=== PATIENT | male | born 1940 | race Caucasian/White ===

== ENCOUNTER 2017-08-22 07:55 | Observation (INO) ==
[2017-08-22] MEDS ORDERED: Nitroglycerin 0.4 MG TAB.SUBL SL PRN (08:15)
--- NOTE | 2017-08-22 08:20 | Emergency Department Note ---
Disposition Clinical Impression: NSTEMI (non-ST elevated myocardial infarction) Disposition: Admitted As Inpatient Condition: Good Referrals: Nicolás Suero MD [Primary Care Provider] - Forms: ED Satisfaction Letter Time of Disposition: 09:33 Chest Pain HPI - General Chief Complaint: ED Chest Pain Stated Complaint: CP Time Seen by Provider: 08/22/17 08:01 Source: patient Limitations: no limitations Vital Signs Reviewed: Yes Nursing Notes Reviewed: Yes - History of Present Illness HPI Narrative: 76 year old male presents to the eD with complaints of chest pressure that started yesterday evening and has been intermittement oer the past 12 hours. He has a history of CABG and 4 stents from previous ACS/STEMIs. PAtient states that this is simliar in [facility] and follows with Dr. Soler and has an appointment on September 01 with him. 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 He also has a suprapubic catheter secondary to his prostate cancer. PAtnet states that he is at baseline for his exertional dyspnea and denies diaphoresis, although eh was fairely nausated yesterday. No fevers, cough , cold, congestion, or hemoptyosis. Severity scale (1-10): 4 - Related Data Home Medications Medication Instructions Recorded Confirmed Clopidogrel [Plavix] 75 mg PO DAILY 07/22/15 08/22/17 Levothyroxine [Synthroid] 112 mcg PO DAILY 07/22/15 08/22/17 Rosuvastatin Calcium [Crestor] 1 tab PO DAILY 07/22/15 08/22/17 hydroCHLOROthiazide 12.5 mg PO DAILY 07/22/15 08/22/17 [Hydrochlorothiazide] Carvedilol [Coreg] 6.25 mg PO BID 08/22/17 08/22/17 Cranberry Fruit Extract [Cranberry] 500 mg PO DAILY 08/22/17 08/22/17 Lisinopril [Zestril] 40 mg PO BID 08/22/17 08/22/17 hydroCHLOROthiazide 50 mg PO DAILY 08/22/17 08/22/17 [Hydrochlorothiazide] Allergies Allergy/AdvReac Type Severity Reaction Status Date / Time aspirin Allergy Anaphylaxis Verified 08/22/17 07:59 Constitutional: Denies: fever, chills, weakness, weight change Eyes: Denies: eye pain, eye discharge, vision change ENT ED: Denies: ear pain, throat pain, dental pain, hearing loss, epistaxis, congestion, dysphagia Cardiovascular: Reports: chest pain. Denies: palpitations, dyspnea on exertion , edema, syncope Respiratory: Denies: cough, dyspnea, wheezes, hemoptysis, stridor Gastrointestinal: Denies: abdominal pain, nausea, vomiting, diarrhea, constipation, hematemesis, melena, hematochezia Genitourinary: Denies: urgency, dysuria, frequency, hematuria Musculoskeletal: Denies: back pain, neck pain, arthralgia, myalgia Integumentary: Denies: rash, abrasion, lesions Neurological: Denies: headache, weakness, numbness, paresthesias, confusion, abnormal gait, vertigo Psychiatric: Denies: anxiety, depression, suicidal thoughts, homicidal thoughts , auditory hallucinations, visual hallucinations Endocrine: Denies: fatigue Hematological/Lymphatic: Denies: easy bleeding, easy bruising Allergic/Immunologic: Denies: facial swelling, urticaria Chest Pain PMH - Past Medical History Medical history: Reports: cancer, coronary artery disease, hyperlipidemia, hypertension, myocardial infarction Psychiatric history: Reports: no psych history - Social History Smoking Status: Former smoker Alcohol use: Reports: none Drug use: Reports: none Physical Exam - General Limitations: no limitations General appearance: alert, in no apparent distress - Head Head exam: atraumatic, normocephalic, normal inspection - Eye Eye exam: Present: normal appearance, PERRL, EOMI - Expanded Eye Exam Pupils: Bilateral: reactive - ENT ENT exam: normal exam, normal oropharynx, mucous membranes moist - Expanded ENT Exam External ear exam: Present: normal external inspection Mouth exam: Present: normal external inspection Teeth exam: Present: normal inspection Throat exam: Present: normal inspection - Neck Neck exam: Present: normal inspection, full ROM, trachea midline - Chest Chest inspection: Present: normal inspection, symmetric chest wall rise - Respiratory Respiratory exam: Present: normal lung sounds bilaterally - Cardiovascular Cardiovascular exam: Present: regular rate, normal rhythm, normal heart sounds - Abdominal Exam Abdominal exam: Present: soft, Non-Tender. Absent: tenderness, distention, guarding, rebound, rigidity - Extremities Exam Extremities exam: Present: normal inspection, full ROM. Absent: tenderness, pedal edema - Expanded Upper Extremity Exam Shoulder exam: Present: normal inspection, full ROM Arm exam: Present: normal inspection, full ROM Elbow exam: Present: normal inspection, full ROM Forearm/Wrist exam: Present: normal inspection, full ROM Hand exam: Present: normal inspection, full ROM Vascular exam: Normal: capillary refill, radial pulse - Expanded Lower Extremity Exam Hip/Pelvis exam: Present: normal inspection, full ROM Upper leg exam: Present: normal inspection, full ROM Knee exam: Present: normal inspection, full ROM Lower leg exam: Present: normal inspection, full ROM Ankle exam: Present: normal inspection, full ROM Foot/toe exam: Present: normal inspection, full ROM Neurovascular/Tendon exam: Absent: motor deficit, sensory deficit, tendon deficit - Back Exam Back exam: Present: normal inspection, full ROM. Absent: tenderness - Neurological Exam Neurological exam: Present: alert, oriented X3 - Expanded Neurological Exam Patient oriented to: Present: person, place, time Coma Scale Eye Opening: Spontaneous Coma Scale Motor Response: Obeys Commands Coma Scale Verbal Response: Oriented Coma Scale Total: 15 - Psychiatric Psychiatric exam: Present: normal affect, normal mood - Skin Skin exam: Present: warm, dry, intact, normal color Course Course Narrative: we will do a cardiopulmonary workup and rule out PE but likely amanda for CP r/oa ACS. nitro shonna be given. He is allergic to ASA so we will treat him with clopigreal instead. - Reevaluation(s) Reevaluation #1: updated patine bibiana he is agreeble to admission Time: 09:16 - Consultations Consultation #1: discussed case with Dr. Becerra and he accepts ptinet for admission and would like cardiology consulted as well. Heparin drip started, nitro drip ordered but on hold due to chest pain level of 1. cards paged. Time: 09:16 Vital Signs Temperature 97.5 F L 08/22/17 07:56 Pulse Rate 62 08/22/17 07:56 Respiratory Rate 18 08/22/17 07:56 Blood Pressure 165/102 08/22/17 07:56 O2 Sat by Pulse Oximetry 97 08/22/17 07:56 Temperature 97.5 F L 08/22/17 07:56 Pulse Rate 62 08/22/17 07:56 Respiratory Rate 18 08/22/17 07:56 Blood Pressure 165/102 08/22/17 07:56 O2 Sat by Pulse Oximetry 97 08/22/17 07:56 Oxygen Delivery Oxygen Delivery Room Air Chest Pain - Medical Records Medical records reviewed: Yes I reviewed the patient's medical records. - Lab Data Lab results reviewed: Yes I reviewed the patient's lab results. Result diagrams: 08/22/17 08:19 08/22/17 08:19 Lab Results 08/22/17 08/22/17 08/22/17 Range/Units 08:19 08:19 08:19 WBC 6.7 (4.3-11.1) K/mcL RBC 5.22 (4.19-5.50) M/mcL Hgb 16.3 (12.9-16.9) g/dL Hct 47.4 (37.5-50.1) % MCV 90.8 (83.0-100.0) fL MCH 31.2 (28.0-33.3) pg MCHC 34.4 (31.6-35.5) g/dL RDW 12.7 (11.5-14.5) % Plt Count 233 (140-400) K/mcL MPV 9.0 L (9.4-12.4) fL Immature Gran % 0.6 (0-4) % Seg Neutrophils % 62.1 % Lymphocytes % 23.0 % Monocytes % 10.7 % Eosinophils % 3.0 % Basophils % 0.6 % Neutrophils # 4.2 (1.6-8.9) K/mcL Lymphocytes # 1.6 (0.6-4.6) K/mcL Monocytes # 0.7 (0.0-1.3) K/mcL Eosinophils # 0.2 (0.0-0.6) K/mcL Basophils # 0.0 (0.0-0.2) K/mcL PT 10.6 (9.4-12.1) Seconds INR 1.0 APTT 28.6 (26.0-36.0) Seconds D-Dimer (0-500) ng/mLFEU Sodium 139 (136-145) mEq/L Potassium 3.6 (3.5-5.1) mEq/L Chloride 101 (98-107) mEq/L Carbon Dioxide 31 H (23-29) mEq/L BUN 12 (8-23) mg/dL Creatinine 0.84 (0.70-1.30) mg/dL Est GFR ( Amer) > 60 (> 60) Est GFR (Non-Af Amer) > 60 (> 60) BUN/Creatinine Ratio 14 (6-26) Glucose 133 H (70-105) mg/dL Calculated Osmolality 290 (280-300) Lactic Acid (0.5-2.2) mmol/L Calcium 9.6 (8.6-10.3) mg/dL Total Bilirubin (0.3-1.0) mg/dL Direct Bilirubin (0.0-0.2) mg/dL Indirect Bilirubin (0.0-1.2) mg/dL AST (13-39) Units/L ALT (7-52) Units/L Alkaline Phosphatase (34-104) Units/L Troponin I 0.69 H* (< 0.04) ng/mL Serum Total Protein (6.4-8.9) g/dL Albumin (3.5-5.7) g/dL Globulin (2.4-3.5) g/dL Albumin/Globulin Ratio (1.1-2.2) Lipase (11-82) Units/L 08/22/17 08/22/17 08/22/17 Range/Units 08:19 08:19 08:19 WBC (4.3-11.1) K/mcL RBC (4.19-5.50) M/mcL Hgb (12.9-16.9) g/dL Hct (37.5-50.1) % MCV (83.0-100.0) fL MCH (28.0-33.3) pg MCHC (31.6-35.5) g/dL RDW (11.5-14.5) % Plt Count (140-400) K/mcL MPV (9.4-12.4) fL Immature Gran % (0-4) % Seg Neutrophils % % Lymphocytes % % Monocytes % % Eosinophils % % Basophils % % Neutrophils # (1.6-8.9) K/mcL Lymphocytes # (0.6-4.6) K/mcL Monocytes # (0.0-1.3) K/mcL Eosinophils # (0.0-0.6) K/mcL Basophils # (0.0-0.2) K/mcL PT (9.4-12.1) Seconds INR APTT (26.0-36.0) Seconds D-Dimer 242 (0-500) ng/mLFEU Sodium (136-145) mEq/L Potassium (3.5-5.1) mEq/L Chloride (98-107) mEq/L Carbon Dioxide (23-29) mEq/L BUN (8-23) mg/dL Creatinine (0.70-1.30) mg/dL Est GFR ( Amer) (> 60) Est GFR (Non-Af Amer) (> 60) BUN/Creatinine Ratio (6-26) Glucose (70-105) mg/dL Calculated Osmolality (280-300) Lactic Acid 1.9 (0.5-2.2) mmol/L Calcium (8.6-10.3) mg/dL Total Bilirubin 0.9 (0.3-1.0) mg/dL Direct Bilirubin 0.2 (0.0-0.2) mg/dL Indirect Bilirubin 0.7 (0.0-1.2) mg/dL AST 16 (13-39) Units/L ALT 23 (7-52) Units/L Alkaline Phosphatase 48 (34-104) Units/L Troponin I (< 0.04) ng/mL Serum Total Protein 7.5 (6.4-8.9) g/dL Albumin 4.2 (3.5-5.7) g/dL Globulin 3.3 (2.4-3.5) g/dL Albumin/Globulin Ratio 1.3 (1.1-2.2) Lipase 29 (11-82) Units/L - Radiology Data Radiology results reviewed: Yes I reviewed the patient's radiology results. - EKG Data EKG attestation: Yes I reviewed and interpreted this EKG. EKG results narrative: NSR with rate of 68. NO STEMI. RBBB. nrmal intervals. no old ekg. 0828 Heart Score - Score History: Moderately Suspicious EKG: Non Specific repolarisation Disturbance Age: Greater than 65 Risk Factors: Equal/Greater than 3 risk factor or history of atherosclerotic disease Troponin: Greater than 3x normal limit HEART Score Total: 8
[2017-08-22 08:28] LABS: Basophils % 0.6 %; Eosinophils # 0.2 K/mcL (0.0-0.6); Hematocrit 47.4 % (37.5-50.1); Hemoglobin 16.3 g/dL (12.9-16.9); Immature Granulocytes % 0.6 % (0-4); Lymphocytes # 1.6 K/mcL (0.6-4.6); Mean Corpuscular HGB Conc 34.4 g/dL (31.6-35.5); Mean Corpuscular Hemoglobin 31.2 pg (28.0-33.3); Mean Corpuscular Volume 90.8 fL (83.0-100.0); Monocytes # 0.7 K/mcL (0.0-1.3); Monocytes % 10.7 %; Neutrophils # 4.2 K/mcL (1.6-8.9); Platelet Count 233 K/mcL (140-400); Red Blood Count 5.22 M/mcL (4.19-5.50); Red Cell Distribution Width 12.7 % (11.5-14.5); Segmented Neutrophils % 62.1 %
[2017-08-22 08:39] LABS: Prothrombin Time 10.6 Seconds (9.4-12.1)
[2017-08-22 08:42] LABS: Activated Partial Thrombo Time 28.6 Seconds (26.0-36.0)
[2017-08-22 08:50] LABS: Albumin 4.2 g/dL (3.5-5.7); Albumin/Globulin Ratio 1.3 (1.1-2.2); Bilirubin,Direct 0.2 mg/dL (0.0-0.2); Bilirubin,Indirect 0.7 mg/dL (0.0-1.2); Bilirubin,Total 0.9 mg/dL (0.3-1.0); Globulin 3.3 g/dL (2.4-3.5); Total Protein 7.5 g/dL (6.4-8.9)
[2017-08-22 08:51] LABS: BUN/Creatinine Ratio 14 (6-26); Blood Urea Nitrogen 12 mg/dL (8-23); Calcium 9.6 mg/dL (8.6-10.3); Carbon Dioxide 31 mEq/L (23-29); Chloride 101 mEq/L (98-107); Glucose 133 mg/dL (70-105); Osmolality,Calculated 290 (280-300); Potassium 3.6 mEq/L (3.5-5.1); Sodium 139 mEq/L (136-145); eGFR For African Americans > 60 (> 60); eGFR For Non-African Americans > 60 (> 60)
[2017-08-22] MEDS ORDERED: *HR* Heparin 5,000 UNIT/ML VIAL IVP ONE (08:58)
[2017-08-22] MEDS ORDERED: *HR* Heparin 5,000 UNIT/ML VIAL IVP PRN ×2 (08:58)
[2017-08-22 08:59] LABS: Troponin I 0.69 ng/mL (< 0.04)
[2017-08-22] MEDS ORDERED: Nitroglycerin 25 MG/250 ML INFUS..BTL IVC SCH (09:00)
[2017-08-22] MEDS ORDERED: Heparin 25,000 UNIT/500 ML D5W 25,000 UNIT/500 ML BAG IVC SCH (09:00)
--- NOTE | 2017-08-22 10:16 | Internal Med History&Physical ---
Date of Encounter: 08/22/17 Time of Encounter: 09:30 Assessment and Plan (1) NSTEMI (non-ST elevated myocardial infarction) Current visit: Yes Status: Acute Patient presenting with chest pain and troponin elevation up to 0.69. Given his prior history of coronary artery disease, CABG, most likely non-ST elevation CT. Continue IV heparin. IV nitroglycerin to control chest pain. Consult cardiology for further recommendations. Patient will most likely need left heart catheterization. High risk for complications. Monitor with telemetry. Check lipid profile. (2) Essential hypertension Current visit: Yes Status: Chronic Blood pressure was elevated on initial arrival here. Since then it has improved. We will continue to monitor blood pressure. Continue home medications. (3) Coronary artery disease Current visit: Yes Status: Acute Status post-PCI and stents and CABG. Continue Plavix, carvedilol, lisinopril and Crestor. Qualifiers: Coronary Disease-Associated Artery/Lesion type: [place] artery [place] vs. transplanted heart: [place] heart Associated angina: with unstable angina Qualified Code(s): I25.110 - Atherosclerotic heart disease of [place] coronary artery with unstable angina pectoris (4) Hypothyroidism Current visit: Yes Status: Chronic Continue levothyroxine. Qualifiers: Hypothyroidism type: other Qualified Code(s): E03.8 - Other specified hypothyroidism (5) DVT prophylaxis Current visit: Yes Status: Acute On IV heparin Internal Medicine - H&P: HPI Chief complaint: Chest pain Admitted From: Emergency Dept Plans for Post Hospital Care: Home History of present illness: Mr. Lacy is a 76 year old male patient with history of coronary artery disease status post PCI and coronary intervention and coronary artery bypass grafting presented to the ER with complaints of chest pain that began last night. He describes it as left-sided chest tightness. He did have some nitroglycerin at home but he did not take it was not very intense and was nonradiating. He continued to have the pain overnight so he came to the ER. In the ER, he has been placed on nitro drip and his chest pain seems to have eased up. He denies any shortness of breath at this time. No pedal edema. No fever or chills. No cough. He had CABG done one year back. Patient is currently on Plavix. His other medical problems include rectal cancer, hypertension, hypothyroidism, DVTs with IVC filter in place. Past Med Surg Social Fam HX - Past Medical History Attestation: Yes The following information was validated with the patient. Source: patient Medical history: cancer, coronary artery disease, hyperlipidemia, hypertension, myocardial infarction Psychiatric history: no psych history - Social History Smoking Status: Former smoker Alcohol use: none Drug use: none Internal Medicine - H&P: Meds Clopidogrel [Plavix] 75 mg PO DAILY 07/22/15 [History] Levothyroxine [Synthroid] 112 mcg PO DAILY 07/22/15 [History] Rosuvastatin Calcium [Crestor] 1 tab PO DAILY 07/22/15 [History] hydroCHLOROthiazide [Hydrochlorothiazide] 12.5 mg PO DAILY 07/22/15 [History] Carvedilol [Coreg] 6.25 mg PO BID 08/22/17 [History] Cranberry Fruit Extract [Cranberry] 500 mg PO DAILY 08/22/17 [History] Lisinopril [Zestril] 40 mg PO BID 08/22/17 [History] hydroCHLOROthiazide [Hydrochlorothiazide] 50 mg PO DAILY 08/22/17 [History] 3 Allergy/AdvReac Type Severity Reaction Status Date / Time aspirin Allergy Anaphylaxis Verified 08/22/17 07:59 All Systems PM: A 10-system review of systems was performed and is negative for pertinent findings except as documented above in the HPI. - Constitutional Constitutional: no chills, no fever(s), no night sweats - EENT Eyes: no change in vision, no discharge, no pain, no photophobia Ears: no ear discharge, no ear pain, no tinnitus Nose, mouth and throat: no dysphagia, no nasal discharge, no neck pain, no sore throat - Cardiovascular Cardiovascular ROS IM: chest pain, no diaphoresis, no dyspnea, no lightheadedness, no palpitations, no syncope - Respiratory Respiratory: no cough, no dyspnea, no wheezing, no excessive phlegm production - Gastrointestinal Gastrointestinal: no abdominal pain, no diarrhea, no hematemesis, no hematochezia, no melena, no nausea, no vomiting - Musculoskeletal Musculoskeletal ROS IM: no numbness, no tingling - Integumentary Integumentary IM: no rash, no unusual bruising - Neurological Neurological ROS: no confusion, no convulsions, no focal weakness, no numbness, no tingling, no tremor(s) - Hematologic/Lymphatic Hematologic/Lymphatic: no easy bruising - Constitutional Vitals: Temp Pulse Resp BP Pulse Ox 97.5 F L 59 18 120/79 98 08/22/17 07:56 08/22/17 09:26 08/22/17 09:26 08/22/17 09:26 08/22/17 09:26 General appearance: Present: cooperative, mild distress, A&O X 3, answers questions appropriately - Respiratory Respiratory exam: Present: CTAB. Absent: accessory muscle use, rales, rhonchi, wheezes - Cardiovascular Cardiovascular exam: Present: RRR, +S1, +S2. Absent: diastolic murmur, gallop, rubs, systolic murmur - GI/Abdominal GI/Abdominal exam: Present: normal bowel sounds, soft, no peritoneal signs. Absent: distended, tenderness - Extremities Exam Extremities exam: Present: warm, radial pulses palpable and symmetrical. Absent : calf tenderness, cyanotic, pedal edema - Neurological Exam Neurological exam: Present: alert, CN II-XII intact, oriented X3, no focal deficits. Absent: facial droop, speech deficit - Skin Skin exam: Present: dry, intact Internal Med - H&P Results - Labs CBC & Chem 7: 08/22/17 08:19 08/22/17 08:19 Labs: Short CBC 08/22/17 Range/Units 08:19 WBC 6.7 (4.3-11.1) K/mcL Hgb 16.3 (12.9-16.9) g/dL Hct 47.4 (37.5-50.1) % Plt Count 233 (140-400) K/mcL Neutrophils # 4.2 (1.6-8.9) K/mcL BMP 08/22/17 08:19 Sodium 139 Potassium 3.6 Chloride 101 Carbon Dioxide 31 H BUN 12 Creatinine 0.84 Glucose 133 H Calcium 9.6 Cardiac Enzymes 08/22/17 Range/Units 08:19 Troponin I 0.69 H* (< 0.04) ng/mL Liver Function 08/22/17 Range/Units 08:19 Total Bilirubin 0.9 (0.3-1.0) mg/dL Direct Bilirubin 0.2 (0.0-0.2) mg/dL AST 16 (13-39) Units/L ALT 23 (7-52) Units/L Alkaline Phosphatase 48 (34-104) Units/L Albumin 4.2 (3.5-5.7) g/dL - EKG Data -: EKG Interpreted by Myself - EKG Data EKG comments: 08/22/17 10:18 Right bundle-branch block - Impressions ITS Impressions Chest X-Ray 08/22/17 08:01 IMPRESSION: 1. Nonspecific subsegmental left lateral lung base subpleural opacity. This could represent atelectasis or possible scarring. 2. No lobar pneumonia or evidence of acute congestive heart failure. D/ / 08/22/2017 08:53:54 Álvaro Kerr MD / [facility] Interpreting Provider: Álvaro Kerr MD
[2017-08-22] MEDS ORDERED: Naloxone 0.4 MG/ML INJ IVP PRN (10:21)
[2017-08-22] MEDS ORDERED: *HR* OxyCODONE Immed Rel 5 MG TABLET PO PRN (10:21)
[2017-08-22] MEDS ORDERED: Acetaminophen 325 MG TABLET PO PRN (10:21)
--- NOTE | 2017-08-22 11:04 | Cardiology Consult Note ---
Date of Encounter: 08/22/17 Time of Encounter: 10:45 Assessment and Plan (1) NSTEMI (non-ST elevated myocardial infarction) Current Visit: Yes Status: Acute Troponin 0.69. Typical chest pain symptoms. No w pain free. EKG shows SR with RBBB. [facility] R/B/A discussed. Patient agrees to proceed. Noted that patient is allergic to aspirin due to anaphylaxis. Continue plavix and heparin gtt. Continue bb and statin. (2) Coronary artery disease Current Visit: Yes Status: Chronic History of CABG at [facility] one year ago and multiple PCI. Will order records. [facility] today for evaluation for NSTEMI. Qualifiers: Coronary Disease-Associated Artery/Lesion type: [place] artery [place] vs. transplanted heart: [place] heart Associated angina: with unstable angina Qualified Code(s): I25.110 - Atherosclerotic heart disease of [place] coronary artery with unstable angina pectoris Discussion w patient/family: The assessment and plan as outlined above was discussed with the patient and/or family members who expressed understanding and agreement. All questions were answered. Thank you for involving us in the care of your patient. Please call with any questions. History of Present Illness Consult date: 08/22/17 Requesting physician: Polina Becerra Consult reason: NSTEMI Chief complaint: Chest pain History of present illness: Mr. Lacy is a 76 year old male with past medical history of [place] [facility] [place] PCI, DVT and PE s/p IVC filter, colon and prostate cancer, urostomy, HTN, who presented with the c/o chest pain. He developed left sided chest pressure and burning last night. He took one ranitidine with no relief. He presented to the ED this morning for continued pain. He was given SL NTG x2 with relief of chest pain. He denies associated symptoms. Denies SOB, palpitations, or dizziness. Denies orthopnea, PND, or edema. He previously followed with Dr. Soler at [facility]. Past Med Surg Social Fam HX - Past Medical History Attestation: Yes The following information was validated with the patient. Medical history: cancer, coronary artery disease, hyperlipidemia, hypertension, myocardial infarction Psychiatric history: no psych history - Social History Smoking Status: Former smoker Alcohol use: none Drug use: none - Family History Mother Hx Family Cancer: Yes (breast cancer) Father Hx Family Cancer: Yes (prostate cancer) Medications and Allergies Clopidogrel [Plavix] 75 mg PO DAILY 07/22/15 [History] Levothyroxine [Synthroid] 112 mcg PO DAILY 07/22/15 [History] Rosuvastatin Calcium [Crestor] 1 tab PO DAILY 07/22/15 [History] hydroCHLOROthiazide [Hydrochlorothiazide] 12.5 mg PO DAILY 07/22/15 [History] Carvedilol [Coreg] 6.25 mg PO BID 08/22/17 [History] Cranberry Fruit Extract [Cranberry] 500 mg PO DAILY 08/22/17 [History] Lisinopril [Zestril] 40 mg PO BID 08/22/17 [History] hydroCHLOROthiazide [Hydrochlorothiazide] 50 mg PO DAILY 08/22/17 [History] 3 Allergy/AdvReac Type Severity Reaction Status Date / Time aspirin Allergy Anaphylaxis Verified 08/22/17 07:59 All Systems Review: The remainder of the systems were reviewed and are negative Results 08/22/17 08:19 08/22/17 08:19 Consult Discharge Plan - Plan Referrals: Nicolás Suero MD [Primary Care Provider] -
[2017-08-22] MEDS ORDERED: Heparin 1,000 UNITS/500 mL 500 ML ONE (15:11)
[2017-08-22] MEDS ORDERED: 0.9 % Sodium Chloride 1,000 ML ONE ×2 (15:11→15:18)
[2017-08-22] MEDS ORDERED: *HR* Heparin 10,000 UNIT/10 ML VIAL ONE (15:12)
[2017-08-22] MEDS ORDERED: ISOVUE-370 200 ML INFUS..BTL IV ONE ×2 (15:12→16:22)
--- NOTE | 2017-08-22 15:12 | Pre-Sedation Evaluation ---
Pre-sedation evaluation - Pre-sedation checklist Date of procedure: 08/22/17 Procedure: [facility] Recent Vitals: Last Vital Signs Temp 97.6 F 08/22/17 11:23 Pulse 59 08/22/17 11:23 Resp 14 08/22/17 11:23 BP 149/81 08/22/17 11:23 Pulse Ox 96 08/22/17 11:23 H&P (including ROS) documented in medical record: Yes Previous reaction to sedatives/anesthetics: No Dietary Status: NPO after Midnight Airway Assessment: Patient can open mouth completely, TMJ function normal, Micrognathia (under-bite, receding chin) absent, Neck with adequate range of motion Dentition: No loose teeth or bridges Possible difficult airway: No ASA Classification *see protocol: CLASS II-Mild systemic disease Plan of Care: Pt appropriate candidate for procedure/moderate/conscious sedation , Risks/benefits of procedure/sedation discussed w/ patient/family
[2017-08-22] MEDS ORDERED: Nitroglycerin 1,000 MCG/10 ML VIAL IV ONE (15:16)
[2017-08-22] MEDS ORDERED: *HR* FentaNYL (PF) 100 MCG/2 ML VIAL ONE (15:51)
[2017-08-22] MEDS ORDERED: *HR* Midazolam HCl 2 MG/2 ML VIAL ONE (15:51)
[2017-08-22] MEDS ORDERED: 0.9 % Sodium Chloride 1,000 ML IVC SCH (16:45)
--- NOTE | 2017-08-22 17:02 | Invasive Diagnostic Lab Proc ---
Name: Darien aLcy Date of Study: 08/22/2017 Date: 1940 Ht: 71.0in Medical Record#: [id number] Age: 76 Wt: 201.94lb Gender: Male BSA: 2.12 Order #: [id number] BMI: 28.18 Physicians Procedure Physician: Arabella Vergara MD, [facility] Referring MD: Referring MD: Staff Name Position Time In Allison Mai RT Scrub 03:40 PM Kasia Sanchez RT (R) Monitor 03:41 PM Rinku Shahid RN Clay Burner 03:41 PM Dolores Brar RN Nurse 03:41 PM Indications Indication Non-Stemi Procedures Performed Procedure L HRT ART/GRFT ANGIO Pre-Procedure Checklist Informed consent is complete signed and on chart. H&P is on chart. ID band is on and ID verified with patient. Patient NPO for procedure The procedure was described for the patient and questions were answered. ECG is on chart. Plan of Care Patient will tolerate the procedure without complications. Adequate level of comfort will be maintained. Hemodynamics will remain stable Patient will recover from procedure without complications. Respiratory function will be maintained. Cardiac rhythm will remain stable. Patient temperature will be maintained. Patient and/or family have verbalized understanding of the procedure. Patient Education Chief Complaint/Reason for Test: Cardiac Cath Developmental Category: Geriatric (65+ years) Developmentally Appropriate for Age: Yes Learning Barriers: None Education Needs: Procedure Education Method: Verbal Information Taught: Cardiac Cath Educational Evaluation: Able to repeat information Intravenous Access Time IV Size Location DC'd Fluid/Drip Rate Units RN 20g 1 06/08" Patent On Arrival Rt Antecubital 0.9NaCl 25 ml/hr Rinku Shahid RN Allergies aspirin No Known Allergies Vital Signs Time BP (mmHg) HR (bpm) O2 Sat. RR (bpm) LOC 149 / 81 59 96 % 14 04:01 PM / % 5 = Fully awake and oriented or at pre-proc level 04:01 PM / % 4 = Oriented but drowsy 03:57 PM 158 / 78 75 100 % 26 04:02 PM 137 / 71 65 96 % 17 04:06 PM 107 / 68 60 96 % 17 04:12 PM 118 / 74 71 96 % 19 04:16 PM 115 / 63 60 96 % 20 04:21 PM 112 / 51 58 95 % 17 04:27 PM 127 / 70 61 97 % 20 04:32 PM 138 / 85 58 98 % 04:16 PM / % 4 = Oriented but drowsy Procedural Medications Time Medication Dose Units Method Given By 03:57 PM Heparin Intravenous 04:03 PM Versed 2 mg Intravenous Rinku Shahid RN 04:03 PM Fentanyl 50 mcg Intravenous Rinku Shahid RN 04:04 PM Lidocaine 2% 16 ml Subcutaneous Arabella Vergara MD, [facility] ASA Classification: CLASS II- Mild systemic disease (i.e. well-controlled diabetes, hypertension, asthma, cigarette smoking) Rody Score Preprocedure Postprocedure Activity 2- Moves 4 extremities sustained head lift Activity 2- Moves 4 extremities sustained head lift Circulation 2- SBP +/= 20 points of pre-anesthetic level Circulation 2- SBP +/= 20 points of pre-anesthetic level Consciousness 2- Awake and alert oriented x 3 Consciousness 2- Awake and alert oriented x 3 O2 Saturation 2- Able to maintain O2 satruation of 92% on room air O2 Saturation 2- Able to maintain O2 satruation of 92% on room air Respiratory 2- Able to deep breathe and cough well Respiratory 2- Able to deep breathe and cough well Total Score 10 Total Score 10 Contrast Agent: Isovue Diagnostic Contrast: 130 ml Total Contrast: 130 ml Fluoro Dose: 5383 mGy Procedure Log Time Note Enter By 03:40 PM CathStat 03:40 PM Pt arrived to general labor 2 at 15:40 [facility] 03:41 PM Allison Mai RT Position: Scrub [facility]: 15:[facility] 03:41 PM Kasia Sanchez RT (R) Position: Monitor Time in: 15:41 [facility] 03:41 PM Rinku Shahid RN Position: Clay Burner Time in: 15:41 [facility] 03:44 PM Dolores Brar RN Position: Nurse Time in: 15:41 [facility] 03:44 PM Patient charges- Angio tray pack, Navilyst 3mm J, Pulse Oximetry and ACIST tubing and transducer dspellman 03:44 PM IV Supplies used: J loop Angio Cath. dspellman 03:55 PM Vitals capture started with the following parameters, Patient=Adult, Interval=5 min, Initial Ksrhcijm=683 mmHg, Deflation Rate=5 mmHg, Cuff placed on Right Arm 03:57 PM Patient arrived at 15:57 with Heparin Intravenous drip @ dc'd ml/hr dspell:57 PM Physician arrived 15:57 dspell:57 PM Meet and leona completed :57 PM Sign in performed according to hospital policy. 03:57 PM Procedure start 15:57 dsp:57 PM Case Start 03:57 PM HR=75 bpm, ONQK=704/78 mmhg, DmV1=009.0 %, Resp=26 B/min, Comment=Sinus 03:58 PM Hair removed from procedure site in procedure lab using clippers. Right groin prepped with Chloraprep by Rinku Shahid RN, then patient was draped. Skin intact. :58 PM ASA Class CLASS II- Mild systemic disease (i.e. well-controlled diabetes, hypertension, asthma, cigarette smoking) dspell 04:00 PM Case Delayed No dspell: PM Time: 16:01 Patient comfortable and pain free: Yes [facility] PM Time: 16:01LOC: 5 = Fully awake and oriented or at pre-proc level dspell 04:01 PM Clinical Presentation: Non-STEMI dsp 04:02 PM HR=65 bpm, JRZJ=388/71 mmhg, SpO2=96.0 %, Resp=17 B/min, Comment=Sinus 04:02 PM Pressure channel 1 zeroed. 04:02 PM Time out performed according to hospital policy 04:03 PM Time: 16:03 Versed 2 mg Intravenous Given by Rinku Shahid RN [facility] 04:03 PM Time: 16:03 Fentanyl 50 mcg Intravenous Given by Rinku Shahid RN [facility] 04:06 PM Time: 16:04 16 ml Lidocaine 2% to right groin Subcutaneous Given by Arabella Vergara MD, [facility] 04:06 PM Access obtained by percutaneous puncture. 5Fr 10cm Terumo [place] sheath placed in right Femoral artery. [id number] ell 04:06 PM HR=60 bpm, RRLJ=063/68 mmhg, SpO2=96.0 %, Resp=17 B/min, Comment=Sinus 04:06 PM 5Fr FL 4 catheter inserted over the wire [facility] 04:06 PM 0.035 145cm Navilyst 3mmJ wire [id number] dspellman 04:07 PM Recorded Pressure: Ao, HR=57, Condition=Condition 1 (Aorta) Ao 96/60/77 04:08 PM LCA angiography performed in multiple views. dspellman 04:09 PM Catheter removed dspellman 04:09 PM 5Fr FR 4 catheter inserted over the wire [facility] dspellman 04:10 PM RCA angiography performed in multiple views. dspellman 04:10 PM Recorded Pressure: Ao, HR=82, Condition=Condition 1 (Aorta) Ao 77/20/54 04:11 PM SVG to the 1st Diagonal angio performed in multiple views. dspellman 04:12 PM HR=71 bpm, BKFI=176/74 mmhg, SpO2=96.0 %, Resp=19 B/min, Comment=Sinus 04:16 PM Time: 16:01 Patient comfortable and pain free: Yes dspellman 04:16 PM Catheter removed dspellman 04:16 PM Time: 16:01LOC: 4 = Oriented but drowsy dspellman 04:16 PM HR=60 bpm, GKLW=766/63 mmhg, SpO2=96.0 %, Resp=20 B/min, Comment=Sinus 04:16 PM 5Fr IM catheter inserted over the wire [id number] dspellman 04:17 PM LCA angiography performed in multiple views. dspellman 04:19 PM Left MARITZA to the LAD angio performed in multiple views. dspellman 04:19 PM Catheter removed dspellman 04:20 PM 5Fr Pigtail catheter inserted over the wire [facility] dspellman 04:20 PM Catheter selectively placed in left ventricle dspellman 04:20 PM Bolus angiogram of left Ventricle complete: 8 ml/sec for a total of 24 mls dspellman 04:20 PM Pressure channel 1 zero failed. 04:20 PM Pressure channel 1 zeroed. 04:21 PM Recorded Pressure: LV, HR=71, Condition=Condition 1 (Left Ventricle) LV 87/14/16 04:21 PM Recorded Pressure: LV, Ao, HR=50, Condition=Condition 1 (Left Ventricle) LV 82/6/6, (Aorta) Ao 87/50/67 04:21 PM HR=58 bpm, EAKK=739/51 mmhg, SpO2=95.0 %, Resp=17 B/min, Comment=Sinus 04:22 PM Bolus angiogram of Aortic root complete: 15 ml/sec for a total of 30 mls dspell 04:23 PM Catheter removed dspell 04:23 PM Wire removed dspell:25 PM reviewing films. dspell: PM Bolus angiogram of right Femoral complete: 4 ml/sec for a total of 7 mls dspell:26 PM Procedure completed at 16:26 dspellman 04:27 PM HR=61 bpm, KDFX=409/70 mmhg, SpO2=97.0 %, Resp=20 B/min, Comment=Sinus 04:27 PM Sign out completed: Radiation Dose 413.10 mGy Fluoro Time: 6.8 Isovue 370 - 200ml contrast 130 ml given by Arabella Vergara MD, [facility]. Complications: NoneCardiac Rehab Consult needed: NoConfirmed administered medications: Yes ell 04:28 PM Isovue 370 - 200ml,1 Bottle(s) used. dspell 04:29 PM Arterial sheath pulled, Mynx closure device used and was Successful [id number] S/N. dspell 04:29 PM Estimated Blood Loss: minimal dspell 04:30 PM Post ECG NSR dspell 04:30 PM Post Blood Pressure 127/70 dspellman 04:30 PM 16:30 Post Pulses Bilateral DP & PT 1+ dspell 04:31 PM Information taught Cardiac Cath and Mynx dspell 04:31 PM Time: 16:16LOC: 4 = Oriented but drowsy dspell 04:31 PM Time: 16:16 Patient comfortable and pain free: Yes ell 04:32 PM HR=58 bpm, RRMW=511/85 mmhg, SpO2=98.0 %, Comment=Sinus 04:32 PM Information taught Cardiac Cath and Mynx dspell 04:32 PM Education needs Procedure, Plan of Care, and Responsibilities of Patient in Care dspell 04:32 PM Learning barriers :None dspell 04:32 PM Education Methods Verbal dspell 04:32 PM Education evaluation Able to repeat information dspell 04:32 PM Family placed in consult room. dspell 04:33 PM Site status No bleeding/hematoma - Rt Groin as reported by Allison Mai RT at 16:32 dspellman 04:33 PM Opsite applied dspell 04:33 PM Delay to floor No dspellman 04:39 PM Patient out of room: 16:39 dspellman 04:39 PM Complications: None dspellman 04:39 PM Fluoro Time: 6.8 dspellman 04:41 PM Isovue 370 - 200ml contrast 130 ml given by Carley Cooper. dspellman 04:41 PM Radiation Dose 5383.10 mGy dspellman 04:42 PM Report given to Aline CARDOZA Pt taken to [facility] Room #26. 16:41 dspellman 04:43 PM Lesion found in LMCA. Pre Stenosis: 30 Pre ALETHEA Flow: dspellman 04:43 PM Lesion found in Proximal LAD. Pre Stenosis: 50 Pre ALETHEA Flow: dspellman 04:43 PM Lesion found in Mid LAD. Pre Stenosis: 20 Pre ALETHEA Flow: dspellman 04:44 PM Lesion found in 1st Diagonal. Pre Stenosis: 99 Pre ALETHEA Flow: dspellman 04:44 PM Lesion found in Proximal Circumflex. Pre Stenosis: 30 Pre ALETHEA Flow: dspellman 04:44 PM Lesion found in Mid Circumflex. Pre Stenosis: 40 Pre ALETHEA Flow: dspellman 04:44 PM Lesion found in 1st Marginal. Pre Stenosis: 30 Pre ALETHEA Flow: dspellman 04:45 PM Lesion found in Right PDA. Pre Stenosis: 30 Pre ALETHEA Flow: dspellman 04:45 PM Lesion found in Ramus. Pre Stenosis: 30 Pre ALETHEA Flow: dspellman 04:48 PM Lesion found in Proximal RCA. Pre Stenosis: 30 Pre AELTHEA Flow: dspellman 04:48 PM Lesion found in Mid RCA. Pre Stenosis: 30 Pre ALETHEA Flow: dspellman 04:48 PM Lesion found in Distal RCA. Pre Stenosis: 65 Pre ALETHEA Flow: dspellman Complications Complication None None Hemodynamics Pressures Site Systolic/A Wave Diastolic/V Wave Mean AO 96 60 77 AO 77 20 54 LV 87 14 16 LV 82 6 6 AO 87 50 67 Post Procedure Information Blood Pressure: 127/70 mmHg Rhythm: NSR Post procedural instructions were given Closure Device Time Device Success/Fail 08/22/2017 4:42:00 PM MynxGrip Successful Site Checks Time Location Status Staff Sheath In? Note 04:32 PM Rt Groin No bleeding/hematoma Allison Mai RT Pulses Time Site Pre-Procedure Post-Procedure Note 4:30:00 PM Bilateral DP & PT 1+ 1+ Updated by RT Taylor (R) on 08/22/2017 4:55:33 PM Kasia Sanchez RT electronically signed on 08/22/2017 4:56:16 PM with status of Final
[2017-08-22] MEDS: Isosorbide MONOnitrate (24 HR) 30 MG TAB.ER.24H PO SCH (17:44)
[2017-08-22] MEDS: Lisinopril 20 MG TABLET PO SCH (21:33)
[2017-08-23 06:30] VITALS: BP 111/67
[2017-08-23 07:15] LABS: Chol/HDL Ratio 3.6 (0-4.9)
[2017-08-23 07:55] LABS: INR 1.1; Prothrombin Time 11.8 Seconds (9.4-12.1)
[2017-08-23 07:58] LABS: Activated Partial Thrombo Time 28.9 Seconds (26.0-36.0)
[2017-08-23] MEDS: Lisinopril 20 MG TABLET PO SCH (08:16)
[2017-08-23] MEDS: Isosorbide MONOnitrate (24 HR) 30 MG TAB.ER.24H PO SCH (08:17)
[2017-08-23] MEDS ORDERED: hydroCHLOROthiazide 25 MG TABLET PO SCH (09:00)
--- NOTE | 2017-08-23 09:31 | Discharge Summary ---
Orders not resulted at time of discharge: Pending orders 08/22/17 15:44 EV echocardiogram Routine Date of Encounter: 08/29/17 Time of Encounter: 09:26 - Discharge Diagnosis (1) NSTEMI (non-ST elevated myocardial infarction) Priority: Primary Status: Acute (2) Coronary artery disease Priority: Secondary Status: Chronic Qualifiers: Coronary Disease-Associated Artery/Lesion type: [place] artery [place] vs. transplanted heart: [place] heart Associated angina: angina presence unspecified Qualified Code(s): I25.10 - Atherosclerotic heart disease of [place] coronary artery without angina pectoris (3) Essential hypertension Priority: Secondary Status: Chronic (4) Hypothyroidism Priority: Secondary Status: Chronic Qualifiers: Hypothyroidism type: other Qualified Code(s): E03.8 - Other specified hypothyroidism (5) Rectal adenocarcinoma Priority: Secondary Status: Acute Hospital course: Mr. Lacy is a 76 year old male with history of coronary artery disease status post PCI and coronary artery bypass grafting one year ago at [place], DVT and pulmonary emboli status post IVC filter, colon and prostate cancer, urostomy, hypertension, presented to the ER with complaints of chest pain that began the night before his admission. He described it as left-sided chest tightness. He did have some nitroglycerin at home but he did not take as it was not very intense and was nonradiating. He continued to have the pain overnight so he came to the ER. In the ER, he has been placed on nitro drip and his chest pain eased up. Was currently on Plavix only as he is allergic to aspirin. Troponins peaked at 0.69, he underwent a cardiac catheterization that demonstrated three-vessel disease with occlusion of the saphenous vein graft to the right PDA, the 2 other grafts were patent, left internal mammary graft to the mid LAD and saphenous vein graft to the first diagonal. Cardiology recommended aggressive medical therapy, isosorbide was added. Stable to be discharged. - Time Spent with Patient Total time spent providing and/or coordinating discharge services: Greater than 30 minutes (40 min) - Discharge Medications Prescriptions: Nitroglycerin 0.4 mg SL Q5MIN PRN #30 tab.subl PRN Reason: Chest Pain Isosorbide MONOnitrate (24 HR) [Imdur] 30 mg PO DAILY #30 tab.er.24h Home Medications: Clopidogrel [Plavix] 75 mg PO DAILY 07/22/15 [History] Levothyroxine [Synthroid] 112 mcg PO DAILY 07/22/15 [History] Rosuvastatin Calcium [Crestor] 1 tab PO DAILY 07/22/15 [History] hydroCHLOROthiazide [Hydrochlorothiazide] 12.5 mg PO DAILY 07/22/15 [History] Carvedilol [Coreg] 6.25 mg PO BID 08/22/17 [History] Cranberry Fruit Extract [Cranberry] 500 mg PO DAILY 08/22/17 [History] Lisinopril [Zestril] 40 mg PO BID 08/22/17 [History] hydroCHLOROthiazide [Hydrochlorothiazide] 50 mg PO DAILY 08/22/17 [History] Isosorbide MONOnitrate (24 HR) [Imdur] 30 mg PO DAILY #30 tab.er.24h 08/23/17 [ Rx] Nitroglycerin 0.4 mg SL Q5MIN PRN #30 tab.subl 08/23/17 [Rx] Allergies/Adverse Reactions: 3 Allergy/AdvReac Type Severity Reaction Status Date / Time aspirin Allergy Anaphylaxis Verified 08/22/17 07:59 Date of admission: 08/22/17 10:19 Primary care physician: Nicolás Suero, Consults: 08/22/17 16:43 Consult to Cardiac Rehabilitation-Phase1 [CONS] Routine Comment: Reason for Consult: post op diagnostic cath Call Completed: Yes - Constitutional Vitals: Temp Pulse Resp BP Pulse Ox 98.0 F 60 16 111/67 95 08/23/17 06:28 08/23/17 06:28 08/23/17 06:28 08/23/17 06:28 08/23/17 06:28 General appearance: Present: cooperative, mild distress, A&O X 3, answers questions appropriately - Head Head exam: Present: atraumatic, normocephalic - Eye Eye exam: Present: PERRL, conjuntiva pink, sclera anicteric Pupils: Present: PERRL - Neck Neck exam general surgery: Present: supple, trachea midline. Absent: lymphadenopathy - Respiratory Respiratory exam: Present: CTAB. Absent: accessory muscle use, rales, rhonchi, wheezes - Cardiovascular Cardiovascular exam: Present: RRR, +S1, +S2. Absent: diastolic murmur, gallop, rubs, systolic murmur - GI/Abdominal GI/Abdominal exam: Present: normal bowel sounds, soft, no peritoneal signs. Absent: distended, tenderness - Extremities Exam Extremities exam: Present: warm, radial pulses palpable and symmetrical. Absent : calf tenderness, cyanotic, pedal edema - Neurological Exam Neurological exam: Present: CN II-XII intact, oriented X3, no focal deficits. Absent: pronater drift, facial droop, speech deficit - Skin Skin exam: Present: dry. Absent: intact Additional comments: Right groin cardiac catheterization wound without signs of hematoma or infection - Patient Status Disposition: Home, Self-Care Condition: Good Overall status at discharge: patient is progressing back to baseline - Discharge Instructions Follow Up With: Nicolás Suero MD [Primary Care Provider] - (9 am Monday08/30/2017) Additional Instructions: RISK FACTORS: STOP SMOKING: If you smoke, STOP. Smoking or tobacco use significantly increases your risk of heart disease because nicotine causes the arteries to narrow or constrict. It also causes fats to stick to the artery. Your chances of having a heart attack are greatly increased if you continue to smoke. For more information, call the education line for smoking cessation 1-802-GMSZUCI EAT A LOW FAT/CHOLESTEROL/SODIUM DIET: This diet may help reduce your chances of having a heart attack. LIFTING: Avoid lifting anything more than 10 pounds for 5-7 days Prior to straining, laughing, sneezing and/or coughing, apply manual pressure directly over insertion site. ACTIVITY: You may walk or climb stairs as tolerated You can resume sexual activity as tolerated In general, you are encouraged to engage in a minimum of 30 minutes or more of moderate intensity physical activity, such as brisk walking, daily or at least 3 -4 times weekly BATHING Do not submerge the site into water (bath tub, hot tub, swimming pool) for 1 week. This can be a source for infection into the blood stream. You may shower after 24 hours SITE CARE: After 24 hours, you may remove the dressing and leave the site open to air. Keep the site clean and dry. Clean gently and pat dry. You can expect bruising and tenderness that gradually resolve within a week or two. Return to work as instructed per your physician Resume driving as instructed per physician Keep all scheduled follow up appointments Resume medications as instructed IMPORTANT: If prescribed a Platelet Aggregation Inhibitor such as, Plavix, Brilinta or Effient: Duration of therapy is minimum one year These medications are often used in combination with Aspirin in prevention of future heart attacks Never discontinue unless consult with your Client Director STROKE (CVA) Risk factors for a stroke are: Age, cigarette smoking, diabetes, excessive alcohol consumption, family history, high blood pressure, overweight, physical inactivity, prior stroke, heart attack, diagnosis of carotid artery stenosis or other artery disease. Warning signs: Sudden numbness or weakness of the face, arm or leg; especially on one side of the body, sudden confusion, trouble speaking or understanding, sudden trouble seeing in one or both eyes, sudden trouble walking, dizziness, loss of balance or coordination, sudden severe headache with no cause. Call 911 or go to the Emergency Room. CONGESTIVE HEART FAILURE: If you have been diagnosed with Congestive Heart Failure (CHF) and your symptoms return, make an appointment with your physician Weigh yourself daily. Notify your physician if you have a weight gain of two or more pounds in one day or five or more pounds in one week. If you experience any difficulty breathing, please call 911 BLEEDING: Although the risk of bleeding is minimal, it can happen. If you have any bleeding from the site, apply firm pressure above the puncture site for 10-15 minutes. If the bleeding does not stop, continue manual pressure and call 911 Contact your physician if: You develop a fever greater than 101 degrees Fahrenheit Your site becomes reddened or has any drainage You have an increase in pain or burning at the site or if a large knot forms at the site. If you experience chest pain, shortness of breath, dizziness, or extreme tiredness, stop the activity and rest. Please notify your physicians office if you experience any of these symptoms and they are not relieved by rest please call 911!Follow-up with the primary care physician within the next 7 days, follow-up with cardiology within the next 2 weeks. Continue isosorbide 30 mg daily and Plavix. - Diet and Activity Activity: increase activity as tolerated Diet: low fat, low cholesterol
[2017-08-23 11:49] LABS: Basophils # 0.1 K/mcL (0.0-0.2); Basophils % 0.6 %; Eosinophils # 0.2 K/mcL (0.0-0.6); Eosinophils % 1.5 %; Hematocrit 41.7 % (37.5-50.1); Hemoglobin 14.9 g/dL (12.9-16.9); Immature Granulocytes % 0.3 % (0-4); Lymphocytes # 1.5 K/mcL (0.6-4.6); Mean Corpuscular HGB Conc 35.7 g/dL (31.6-35.5); Mean Corpuscular Hemoglobin 32.2 pg (28.0-33.3); Mean Corpuscular Volume 90.1 fL (83.0-100.0); Monocytes # 0.8 K/mcL (0.0-1.3); Monocytes % 7.9 %; Neutrophils # 7.4 K/mcL (1.6-8.9); Platelet Count 213 K/mcL (140-400); Red Blood Count 4.63 M/mcL (4.19-5.50); Segmented Neutrophils % 74.7 %
[2017-08-23 12:05] LABS: BUN/Creatinine Ratio 15 (6-26); Blood Urea Nitrogen 16 mg/dL (8-23); Calcium 9.2 mg/dL (8.6-10.3); Carbon Dioxide 34 mEq/L (23-29); Chloride 99 mEq/L (98-107); Glucose 161 mg/dL (70-105); Osmolality,Calculated 291 (280-300); Potassium 3.4 mEq/L (3.5-5.1); Sodium 138 mEq/L (136-145); eGFR For African Americans > 60 (> 60); eGFR For Non-African Americans > 60 (> 60)
--- NOTE | 2017-08-23 12:49 | Cardiology Progress Note ---
Date of Encounter: 08/23/17 Time of Encounter: 12:00 Assessment and Plan (1) NSTEMI (non-ST elevated myocardial infarction) Current Visit: Yes Status: Acute Known history of CAD s/p CABG one year ago and previous PCI. Typical chest pain with elevated troponin. LHC completed yesterday with no intervention. 2/3 patent bypass grafts. FORREST-LAD, SVG-1st DX are patent. SVG -PDA occluded. Moderate non-obstructive CAD in the RCA system. 99% stenosis 1st OM , small vessel. Medical management recommended. Imdur added to medications. TTE showsLVEF 60%. Mild left ventricular diastolic dysfunction. Atypical septal motion consistent with bundle branch block/post-operative status. Normal right ventricular structure and function. No evidence of pulmonary hypertension. No significant valvular dysfunction. No complication noted with right groin access site. Noted that patient is allergic to aspirin due to anaphylaxis. Continue plavix. Continue bb and statin. Ambulating in hallway with no recurrent pain. Out-pt f/u scheduled with Dr. Soler. Records ordered from [facility] by office. Records not received during stay. Please call with questions. Cardiology will sign off. (2) Coronary artery disease Current Visit: Yes Status: Chronic History of CABG at [facility] one year ago and multiple PCI. See plan above. Qualifiers: Coronary Disease-Associated Artery/Lesion type: [place] artery [place] vs. transplanted heart: [place] heart Associated angina: with unstable angina Qualified Code(s): I25.110 - Atherosclerotic heart disease of [place] coronary artery with unstable angina pectoris Discussion w patient/family: The assessment and plan as outlined above was discussed with the patient and/or family members who expressed understanding and agreement. All questions were answered. Thank you for involving us in the care of your patient. Please call with any questions. Subjective Principal diagnosis: NSTEMI Interval history: S/p LHC. No intervention. No complication from procedure. Ambulating in hallway. Denies recurrent chest pain. Objective Vital Signs Temp Pulse Resp BP Pulse Ox 08/23/17 06:28 98.0 F 60 16 111/67 95 08/23/17 03:32 98.2 F 70 16 105/61 94 08/22/17 23:57 63 18 107/56 93 08/22/17 19:30 65 18 132/78 97 03/20/18 18:44 97.1 F L 54 16 150/80 98 08/22/17 18:30 61 18 139/78 97 08/22/17 18:00 61 18 162/86 97 08/22/17 17:30 97.4 F L 54 18 122/83 97 08/22/17 17:15 97.8 F 57 18 148/80 97 08/22/17 17:00 97.6 F 56 18 138/75 99 08/22/17 16:45 97.6 F 57 18 134/80 98 Intake and Output 08/22/17 08/23/17 08/23/17 23:59 07:59 15:59 Intake Total 240 / 240 Output Total 825 / 825 Balance -825 / -825 240 / 240 Intake: Oral 240 / 240 Output: Urine 825 / 825 Other: Meal Dinner Breakfast Percent of Meal Consumed 90% 100% Weight 100.2 kg Patient Weight 08/23/17 23:59 Weight 100.2 kg General: Conversant, No Apparent Distress HEENT: Atraumatic, Normocephaly, Mucus Membranes Moist Neck: No JVD, Normal carotid pulses Cardiac: Reg Rate and Rhythm, Normal S1 and S2, No Murmur Lungs: Normal Breath Sounds, No Wheeze, Rales, Rhonchi Neuro: Alert and responsive, No focal deficits noted Abdomen: Soft, Non-Tender Skin: No rashes noted on visualized skin Musculoskeletal: No Chest Wall Tenderness Extremities: No Clubbing, No Cyanosis, No Edema, Normal Pulses, Other (right groin without hematoma. Dressing removed. ) Results 08/23/17 11:37 08/23/17 11:37 Lab Results 08/22/17 08/22/17 08/22/17 14:44 14:44 21:55 WBC Hgb Hct Plt Count INR APTT 61.6 H D Sodium Potassium Chloride Carbon Dioxide BUN Creatinine Glucose Calcium Troponin I 0.67 H* 0.64 H* 08/23/17 08/23/17 08/23/17 06:12 11:37 11:37 WBC 9.9 Hgb 14.9 Hct 41.7 Plt Count 213 INR 1.1 APTT 28.9 D Sodium 138 Potassium 3.4 L Chloride 99 Carbon Dioxide 34 H BUN 16 Creatinine 1.04 Glucose 161 H Calcium 9.2 Troponin I - Imaging and Cardiology Echo: report reviewed Cardiac cath: report reviewed - EKG Interpretation EKG results cardiology: personally reviewed Consult Discharge Plan - Plan Additional Instructions: Follow-up with the primary care physician within the next 7 days, follow-up with cardiology within the next 2 weeks. Continue isosorbide 30 mg daily and Plavix. Referrals: Nicolás Suero MD [Primary Care Provider] - Prescriptions: Nitroglycerin 0.4 mg SL Q5MIN PRN #30 tab.subl PRN Reason: Chest Pain Isosorbide MONOnitrate (24 HR) [Imdur] 30 mg PO DAILY #30 tab.er.24h
--- NOTE | 2017-08-23 19:31 | Electrocardiograph Report ---
[place] [id number] Test Date: 2017-08-22 Pat Name: Darien Lacy Department: 103 Room: 3B14 Gender: M Smt Operator: : [id number] Requested By: Chanel Navarro Order Number: [id number] Reading MD: Arun Palacios MD Measurements Intervals [place] Rate: 68 P: 65 MA: 167 QRS: 50 QRSD: 145 T: -12 QT: 416 QTc: 433 Interpretive Statements SINUS RHYTHM RIGHT BUNDLE BRANCH BLOCK Electronically Signed On 08-23-2017 19:29:49 EDT by Arun Palacios MD
== END 2017-08-23 14:10 | disposition home or self-care (01) | DRG 282 ==
LOC: EMEROO 07:55 → INTOOBSV 10:19 → 2SOUTHHOLD 10:19 → 3BNU 08-23 05:30
PROVIDERS: ADMIT Internal Medicine; ATTEND Internal Medicine

== ENCOUNTER 2020-07-24 18:59 | Observation (INO) ==
[2020-07-24 20:29] LABS: Bacteria,Urine Few per hpf (None-Few); Bilirubin,Urine Negative (Negative); Blood,Urine Large (Negative); Clarity,Urine Ex.Turbid (Clear); Color,Urine Yellow (Yellow); Glucose,Urine (UA) Normal (Normal); Ketones,Urine Negative (Negative); Leukocyte Esterase,Urine Large (Negative); Mucus,Urine Few per lpf (None-Few); Nitrite,Urine Positive (Negative); Protein,Urine >=300 mg/dL (Neg-Trace); RBC,Urine TNTC per hpf (0-3); Specific Gravity,Urine 1.024 (1.010-1.025); Urobilinogen,Urine Normal (Normal); WBC,Urine TNTC per hpf (0-3)
[2020-07-24 20:53] LABS: Basophils # 0.1 K/mcL (0.0-0.2); Basophils % 0.5 %; Eosinophils # 0.2 K/mcL (0.0-0.6); Eosinophils % 1.5 %; Hematocrit 43.2 % (37.5-50.1); Hemoglobin 14.7 g/dL (12.9-16.9); Immature Granulocytes % 0.3 % (0-4); Lymphocytes # 1.2 K/mcL (0.6-4.6); Lymphocytes % 10.5 %; Mean Corpuscular Hemoglobin 30.4 pg (28.0-33.3); Mean Corpuscular Volume 89.3 fL (83.0-100.0); Mean Platelet Volume 9.2 fL (9.4-12.4); Monocytes # 1.1 K/mcL (0.0-1.3); Monocytes % 9.4 %; Neutrophils # 9.1 K/mcL (1.6-8.9); Platelet Count 250 K/mcL (140-400); Red Blood Count 4.84 M/mcL (4.19-5.50); Red Cell Distribution Width 12.5 % (11.5-14.5); Segmented Neutrophils % 77.8 %; White Blood Count 11.7 K/mcL (4.3-11.1)
[2020-07-24] MEDS ORDERED: 0.9 % Sodium Chloride 1,000 ML IVC ONE (21:10)
[2020-07-24 21:13] LABS: BUN/Creatinine Ratio 19 (6-26); Blood Urea Nitrogen 16 mg/dL (8-23); Calcium 9.3 mg/dL (8.6-10.3); Carbon Dioxide 28 mEq/L (23-29); Chloride 97 mEq/L (98-107); Glucose 112 mg/dL (70-105); Osmolality,Calculated 280 (280-300); Potassium 3.3 mEq/L (3.5-5.1); Sodium 134 mEq/L (136-145); eGFR For African Americans > 60 (> 60); eGFR For Non-African Americans > 60 (> 60)
[2020-07-24] MEDS ORDERED: Piperacillin/Tazobactam 3.375 GM in 0.9 % Sodium Chloride Mini Bag 100 ML IVPB ONE (21:42)
[2020-07-24] MEDS ORDERED: Acetaminophen 325 MG TABLET PO PRN (23:00)
[2020-07-24] MEDS ORDERED: Ondansetron 4 MG/2 ML VIAL IVP PRN (23:00)
[2020-07-25] MEDS ORDERED: *HR* Enoxaparin 40 MG/0.4 ML SYRINGE SQ SCH (06:00)
[2020-07-25 06:05] LABS: BUN/Creatinine Ratio 15 (6-26); Blood Urea Nitrogen 13 mg/dL (8-23); Calcium 8.6 mg/dL (8.6-10.3); Carbon Dioxide 28 mEq/L (23-29); Chloride 99 mEq/L (98-107); Glucose 102 mg/dL (70-105); Osmolality,Calculated 282 (280-300); Potassium 3.4 mEq/L (3.5-5.1); Sodium 136 mEq/L (136-145); eGFR For African Americans > 60 (> 60); eGFR For Non-African Americans > 60 (> 60)
[2020-07-25 06:14] LABS: Hematocrit 41.9 % (37.5-50.1); Hemoglobin 14.4 g/dL (12.9-16.9); Mean Corpuscular HGB Conc 34.4 g/dL (31.6-35.5); Mean Corpuscular Hemoglobin 31.4 pg (28.0-33.3); Mean Corpuscular Volume 91.5 fL (83.0-100.0); Mean Platelet Volume 9.4 fL (9.4-12.4); Platelet Count 224 K/mcL (140-400); Red Blood Count 4.58 M/mcL (4.19-5.50); Red Cell Distribution Width 12.6 % (11.5-14.5); White Blood Count 9.2 K/mcL (4.3-11.1)
[2020-07-25] MEDS: Piperacillin/Tazobactam 3.375 GM in 0.9 % Sodium Chloride Mini Bag 100 ML IVPB SCH ×2 (08:42→16:48)
[2020-07-25] MEDS: *HR* OxyCODONE/APAP 5/325 TABLET PO PRN ×2 (15:12→21:26)
[2020-07-25] MEDS: hydroCHLOROthiazide 25 MG TABLET PO SCH (15:12)
[2020-07-25] MEDS ORDERED: NON-FORMULARY MEDICATION 1 EACH EACH (Lisinopril [Zestril] 40 MG Tablet) PO SCH (21:00)
[2020-07-25] MEDS: Apixaban 5 MG TABLET PO SCH (21:26)
[2020-07-26] MEDS: Piperacillin/Tazobactam 3.375 GM in 0.9 % Sodium Chloride Mini Bag 100 ML IVPB SCH ×2 (01:11→08:40)
[2020-07-26] MEDS: *HR* OxyCODONE/APAP 5/325 TABLET PO PRN ×2 (03:41→11:01)
[2020-07-26 06:41] VITALS: BP 144/88
[2020-07-26] MEDS: hydroCHLOROthiazide 25 MG TABLET PO SCH (08:39)
[2020-07-26] MEDS: Apixaban 5 MG TABLET PO SCH (08:40)
[2020-07-26] MEDS ORDERED: Isosorbide MONOnitrate (24 HR) 30 MG TAB.ER.24H PO SCH (09:00)
[2020-07-26] MEDS ORDERED: lisinopriL 20 MG TABLET PO SCH (09:00)
[2020-07-26] MEDS ORDERED: Metoprolol XL (24 HR) Succ 50 MG TAB.ER.24H PO SCH (09:00)
== END 2020-07-26 13:31 | disposition home or self-care (01) ==
LOC: EMEROOARM 18:59 → 3BNU 18:59 → SUATTDRO 22:52 → 3BNU 23:35
PROVIDERS: ADMIT Family Medicine; ATTEND Internal Medicine

== ENCOUNTER 2021-02-24 06:25 | Inpatient (IN) ==
[2021-02-24] MEDS ORDERED: Ondansetron 4 MG/2 ML VIAL IVP ONE (07:00)
[2021-02-24] MEDS ORDERED: 0.9 % Sodium Chloride 500 ML IVC ONE (07:00)
[2021-02-24 07:15] LABS: Basophils # 0.1 K/mcL (0.0-0.2); Basophils % 0.4 %; Eosinophils # 0.2 K/mcL (0.0-0.6); Eosinophils % 1.2 %; Hematocrit 44.7 % (37.5-50.1); Hemoglobin 15.2 g/dL (12.9-16.9); Immature Granulocytes % 0.3 % (0-4); Lymphocytes # 1.6 K/mcL (0.6-4.6); Mean Corpuscular Hemoglobin 31.7 pg (28.0-33.3); Mean Corpuscular Volume 93.1 fL (83.0-100.0); Mean Platelet Volume 9.3 fL (9.4-12.4); Monocytes # 1.1 K/mcL (0.0-1.3); Monocytes % 7.6 %; Neutrophils # 11.6 K/mcL (1.6-8.9); Platelet Count 247 K/mcL (140-400); Red Cell Distribution Width 12.8 % (11.5-14.5); Segmented Neutrophils % 79.5 %; White Blood Count 14.6 K/mcL (4.3-11.1)
[2021-02-24 07:42] LABS: BUN/Creatinine Ratio 17 (6-26); Blood Urea Nitrogen 17 mg/dL (8-23); Calcium 9.1 mg/dL (8.6-10.3); Carbon Dioxide 27 mEq/L (23-29); Chloride 104 mEq/L (98-107); Glucose 152 mg/dL (70-105); Lipase 23 Units/L (11-82); Osmolality,Calculated 291 (280-300); Potassium 3.7 mEq/L (3.5-5.1); Sodium 138 mEq/L (136-145); Troponin I 0.12 ng/mL (< 0.04); eGFR For African Americans > 60 (> 60); eGFR For Non-African Americans > 60 (> 60)
[2021-02-24] MEDS ORDERED: Morphine Sulfate 2 MG/ML SYRINGE IVP ONE (07:48)
[2021-02-24] MEDS ORDERED: *HR* Heparin 5,000 UNIT/ML VIAL IVP ONE (08:07)
[2021-02-24] MEDS ORDERED: *HR* Heparin 5,000 UNIT/ML VIAL IVP PRN ×4 (08:07→15:33)
[2021-02-24 08:10] LABS: INR 1.3; Prothrombin Time 14.4 Seconds (9.4-12.1)
[2021-02-24 08:12] LABS: Activated Partial Thrombo Time 30.8 Seconds (26.0-36.0)
[2021-02-24] MEDS ORDERED: Heparin 25,000UNIT/250ML 1/2NS 25,000 UNIT/250 ML IV.SOLN IVC SCH ×2 (08:15→15:33)
[2021-02-24 08:21] LABS: Heparin anti-factor XA UFH 0.71 IU/mL (0.30-0.70)
[2021-02-24 09:09] LABS: Hematocrit 44.6 % (37.5-50.1); Mean Corpuscular HGB Conc 33.6 g/dL (31.6-35.5); Mean Corpuscular Hemoglobin 31.8 pg (28.0-33.3); Mean Corpuscular Volume 94.5 fL (83.0-100.0); Mean Platelet Volume 9.4 fL (9.4-12.4); Platelet Count 213 K/mcL (140-400); Red Blood Count 4.72 M/mcL (4.19-5.50); Red Cell Distribution Width 12.6 % (11.5-14.5)
[2021-02-24] MEDS ORDERED: *HR* OxyCODONE/APAP 5/325 TABLET PO ONE ×2 (09:57→21:00)
[2021-02-24] MEDS ORDERED: Naloxone 0.4 MG/ML INJ IVP PRN ×2 (10:34→15:33)
[2021-02-24] MEDS ORDERED: Ondansetron 4 MG/2 ML VIAL IVP PRN (10:34)
[2021-02-24] MEDS ORDERED: Nitroglycerin 0.4 MG TAB.SUBL SL PRN ×2 (10:40→15:33)
[2021-02-24] MEDS ORDERED: Furosemide 20 MG/2 ML VIAL IVP ONE (10:46)
[2021-02-24 16:22] LABS: Bilirubin,Urine Negative (Negative); Blood,Urine Negative (Negative); Clarity,Urine Clear (Clear); Color,Urine Colorless (Yellow); Glucose,Urine (UA) Normal (Normal); Ketones,Urine Negative (Negative); Leukocyte Esterase,Urine Negative (Negative); Nitrite,Urine Negative (Negative); PH,Urine 6.5 pH Units (5.0-8.0); Protein,Urine Negative (Neg-Trace); Specific Gravity,Urine 1.006 (1.010-1.025); Urobilinogen,Urine Normal (Normal)
[2021-02-24] MEDS ORDERED: Perflutren Lipid Microsphere 1.3 ML in 0.9 % Sodium Chloride 8.7 ML IVP PRN (16:58)
[2021-02-24] MEDS: Heparin 25,000UNIT/250ML 1/2NS 25,000 UNIT/250 ML IV.SOLN IVC SCH (18:54)
[2021-02-25 02:03] LABS: Basophils % 0.2 %; Eosinophils % 0.1 %; Hematocrit 43.1 % (37.5-50.1); Hemoglobin 14.7 g/dL (12.9-16.9); Immature Granulocytes % 0.4 % (0-4); Lymphocytes # 1.9 K/mcL (0.6-4.6); Mean Corpuscular HGB Conc 34.1 g/dL (31.6-35.5); Mean Corpuscular Hemoglobin 31.6 pg (28.0-33.3); Mean Corpuscular Volume 92.7 fL (83.0-100.0); Mean Platelet Volume 9.8 fL (9.4-12.4); Monocytes # 2.2 K/mcL (0.0-1.3); Neutrophils # 9.3 K/mcL (1.6-8.9); Platelet Count 206 K/mcL (140-400); Red Blood Count 4.65 M/mcL (4.19-5.50); Red Cell Distribution Width 12.8 % (11.5-14.5); Segmented Neutrophils % 69.3 %; White Blood Count 13.5 K/mcL (4.3-11.1)
[2021-02-25 02:11] LABS: Alanine Aminotransferase 19 Units/L (7-52); Albumin 3.9 g/dL (3.5-5.7); Albumin/Globulin Ratio 1.4 (1.1-2.2); Alkaline Phosphatase 55 Units/L (34-104); Aspartate Amino Transferase 16 Units/L (13-39); BUN/Creatinine Ratio 20 (6-26); Bilirubin,Total 1.3 mg/dL (0.3-1.0); Blood Urea Nitrogen 18 mg/dL (8-23); Carbon Dioxide 26 mEq/L (23-29); Chloride 100 mEq/L (98-107); Globulin 2.8 g/dL (2.4-3.5); Glucose 112 mg/dL (70-105); Osmolality,Calculated 283 (280-300); Potassium 3.5 mEq/L (3.5-5.1); Sodium 135 mEq/L (136-145); Total Protein 6.7 g/dL (6.4-8.9); eGFR For African Americans > 60 (> 60); eGFR For Non-African Americans > 60 (> 60)
[2021-02-25] MEDS ORDERED: *HR* OxyCODONE/APAP 5/325 TABLET PO ONE (04:16)
[2021-02-25] MEDS: Heparin 25,000UNIT/250ML 1/2NS 25,000 UNIT/250 ML IV.SOLN IVC SCH (06:02)
[2021-02-25] MEDS ORDERED: Aspirin 81 MG TAB.CHEW PO ONE ×2 (07:00)
[2021-02-25] MEDS ORDERED: Famotidine 20 MG/2 ML VIAL IVP PRN ×2 (07:00)
[2021-02-25] MEDS ORDERED: Aspirin desensitization 4 mg/ml PO ONE ×8 (07:00)
[2021-02-25] MEDS ORDERED: Aspirin desensitization 1 mg/ml PO ONE ×6 (07:00)
[2021-02-25] MEDS ORDERED: methylPREDNISolone 125 MG/2 ML VIAL IVP PRN ×2 (07:00)
[2021-02-25] MEDS ORDERED: EPINEPHrine 1 MG/ML VIAL IM PRN ×2 (07:00)
[2021-02-25] MEDS ORDERED: Metoprolol XL (24 HR) Succ 50 MG TAB.ER.24H PO SCH (11:00)
[2021-02-25] MEDS: lisinopriL 20 MG TABLET PO SCH (11:22)
[2021-02-25] MEDS ORDERED: EPINEPHrine 1 MG/ML VIAL IV PRN ×2 (11:27)
[2021-02-25] MEDS ORDERED: *HR* Heparin 10,000 UNIT/10 ML VIAL ONE (11:27)
[2021-02-25] MEDS ORDERED: Heparin 1,000 UNITS/500 mL 500 ML ONE (11:27)
[2021-02-25] MEDS ORDERED: 0.9 % Sodium Chloride 2,000 ML ONE (11:27)
[2021-02-25] MEDS ORDERED: ISOVUE-370 200 ML INFUS..BTL ONE (11:28)
[2021-02-25] MEDS ORDERED: Nitroglycerin 1,000 MCG/5 ML VIAL IV ONE (11:28)
[2021-02-25] MEDS ORDERED: *HR* Midazolam HCl 2 MG/2 ML VIAL ONE (11:36)
[2021-02-25] MEDS ORDERED: *HR* FentaNYL (PF) 100 MCG/2 ML VIAL ONE (11:37)
[2021-02-25] MEDS: 0.9 % Sodium Chloride 1,000 ML IVC SCH ×2 (13:01→23:22)
[2021-02-25] MEDS: Ondansetron 4 MG/2 ML VIAL IVP PRN (13:31)
[2021-02-25] MEDS: Budesonide/Formoterol 160/4.5 1 PUFF INH IH SCH (20:16)
[2021-02-25] MEDS: Apixaban 5 MG TABLET PO SCH (20:32)
[2021-02-26] MEDS: Ondansetron 4 MG/2 ML VIAL IVP PRN (01:28)
[2021-02-26 05:00] LABS: BUN/Creatinine Ratio 21 (6-26); Blood Urea Nitrogen 15 mg/dL (8-23); Calcium 8.7 mg/dL (8.6-10.3); Carbon Dioxide 27 mEq/L (23-29); Chloride 99 mEq/L (98-107); Glucose 122 mg/dL (70-105); Osmolality,Calculated 276 (280-300); Potassium 3.5 mEq/L (3.5-5.1); Sodium 132 mEq/L (136-145); eGFR For African Americans > 60 (> 60); eGFR For Non-African Americans > 60 (> 60)
[2021-02-26 05:01] LABS: INR 1.5; Prothrombin Time 16.6 Seconds (9.4-12.1)
[2021-02-26] MEDS ORDERED: Isosorbide MONOnitrate (24 HR) 30 MG TAB.ER.24H PO SCH (09:00)
[2021-02-26] MEDS ORDERED: Sennosides/Docusate Sodium TABLET PO SCH (09:00)
[2021-02-26] MEDS ORDERED: Sennosides/Docusate Sodium TABLET PO ONE (09:15)
[2021-02-26] MEDS: Metoprolol XL (24 HR) Succ 50 MG TAB.ER.24H PO SCH (09:21)
[2021-02-26] MEDS: lisinopriL 20 MG TABLET PO SCH (09:21)
[2021-02-26] MEDS: Isosorbide MONOnitrate (24 HR) 60 MG TAB.ER.24H PO SCH (09:21)
[2021-02-26] MEDS: Apixaban 5 MG TABLET PO SCH (09:21)
[2021-02-26] MEDS: amLODIPine 5 MG TABLET PO SCH (09:22)
[2021-02-26] MEDS: 0.9 % Sodium Chloride 1,000 ML IVC SCH (09:24)
[2021-02-26] MEDS: Budesonide/Formoterol 160/4.5 1 PUFF INH IH SCH ×2 (11:33→22:30)
[2021-02-26] MEDS ORDERED: Ketorolac 15 MG/ML VIAL IVP ONE (14:04)
[2021-02-26] MEDS ORDERED: *HR* OxyCODONE Immed Rel 5 MG TABLET PO PRN (14:34)
[2021-02-26] MEDS: Piperacillin/Tazobactam 3.375 GM in 0.9 % Sodium Chloride Mini Bag 100 ML IVPB SCH (16:58)
[2021-02-26] MEDS: Acetaminophen 325 MG TABLET PO SCH ×2 (21:04→23:59)
[2021-02-27 02:15] LABS: Basophils % 0.1 %; Eosinophils % 0.3 %; Hematocrit 36.8 % (37.5-50.1); Immature Granulocytes % 0.7 % (0-4); Lymphocytes # 1.7 K/mcL (0.6-4.6); Lymphocytes % 11.7 %; Mean Corpuscular HGB Conc 33.7 g/dL (31.6-35.5); Mean Corpuscular Hemoglobin 31.3 pg (28.0-33.3); Mean Corpuscular Volume 92.9 fL (83.0-100.0); Mean Platelet Volume 9.6 fL (9.4-12.4); Monocytes # 2.1 K/mcL (0.0-1.3); Monocytes % 14.6 %; Neutrophils # 10.3 K/mcL (1.6-8.9); Platelet Count 189 K/mcL (140-400); Red Blood Count 3.96 M/mcL (4.19-5.50); Red Cell Distribution Width 12.4 % (11.5-14.5); Segmented Neutrophils % 72.6 %; White Blood Count 14.2 K/mcL (4.3-11.1)
[2021-02-27 02:23] LABS: Alanine Aminotransferase 35 Units/L (7-52); Albumin 3.1 g/dL (3.5-5.7); Albumin/Globulin Ratio 1.2 (1.1-2.2); Alkaline Phosphatase 51 Units/L (34-104); Aspartate Amino Transferase 27 Units/L (13-39); BUN/Creatinine Ratio 17 (6-26); Bilirubin,Total 1.5 mg/dL (0.3-1.0); Blood Urea Nitrogen 18 mg/dL (8-23); Calcium 8.5 mg/dL (8.6-10.3); Carbon Dioxide 29 mEq/L (23-29); Chloride 99 mEq/L (98-107); Globulin 2.6 g/dL (2.4-3.5); Glucose 104 mg/dL (70-105); INR 1.4; Osmolality,Calculated 280 (280-300); Potassium 3.9 mEq/L (3.5-5.1); Prothrombin Time 15.8 Seconds (9.4-12.1); Sodium 134 mEq/L (136-145); Total Protein 5.7 g/dL (6.4-8.9); eGFR For African Americans > 60 (> 60); eGFR For Non-African Americans > 60 (> 60)
[2021-02-27 02:24] LABS: Hemoglobin 12.4 g/dL (12.9-16.9)
[2021-02-27] MEDS: Acetaminophen 325 MG TABLET PO SCH ×4 (05:43→23:57)
[2021-02-27] MEDS ORDERED: cefOXitin 1,000 MG, 0.9 % Sodium Chloride 1,000 ML IR ONE ×2 (06:00→11:39)
[2021-02-27] MEDS ORDERED: Isovue-300 50ML VIAL ONE (06:59)
[2021-02-27] MEDS ORDERED: CefOXitin 1,000 MG VIAL ONE (06:59)
[2021-02-27] MEDS ORDERED: *HR* Rocuronium Bromide 50 MG/5 ML VIAL ONE (07:45)
[2021-02-27] MEDS ORDERED: Lidocaine -MPF 2% 5 ML VIAL ONE (07:45)
[2021-02-27] MEDS ORDERED: Ondansetron 4 MG/2 ML VIAL ONE (07:45)
[2021-02-27] MEDS ORDERED: *HR* Succinylcholine 200 MG/10 ML VIAL IVP ONE (07:45)
[2021-02-27] MEDS: lisinopriL 20 MG TABLET PO SCH (07:48)
[2021-02-27] MEDS: amLODIPine 5 MG TABLET PO SCH (07:48)
[2021-02-27] MEDS: Isosorbide MONOnitrate (24 HR) 60 MG TAB.ER.24H PO SCH (07:48)
[2021-02-27] MEDS: Piperacillin/Tazobactam 3.375 GM in 0.9 % Sodium Chloride Mini Bag 100 ML IVPB SCH ×4 (07:48→23:56)
[2021-02-27] MEDS: Metoprolol XL (24 HR) Succ 50 MG TAB.ER.24H PO SCH (07:48)
[2021-02-27] MEDS: Budesonide/Formoterol 160/4.5 1 PUFF INH IH SCH ×2 (07:48→19:30)
[2021-02-27] MEDS ORDERED: *HR* HYDROmorphone PF 0.5 MG/0.5 ML SYRINGE IVP PRN ×2 (08:16→11:39)
[2021-02-27] MEDS ORDERED: *HR* FentaNYL (PF) 100 MCG/2 ML VIAL IVP PRN ×2 (08:16→11:39)
[2021-02-27] MEDS ORDERED: *HR* Propofol 200 MG/20 ML VIAL IVP ONE (09:01)
[2021-02-27] MEDS ORDERED: *HR* FentaNYL (PF) 100 MCG/2 ML VIAL ONE (09:01)
[2021-02-27] MEDS ORDERED: EPHEDrine 50 MG/ML VIAL ONE (09:32)
[2021-02-27] MEDS ORDERED: *HR* OxyCODONE Immed Rel 5 MG TABLET PO PRN (11:39)
[2021-02-27] MEDS ORDERED: Naloxone 0.4 MG/ML INJ IVP PRN (11:39)
[2021-02-27] MEDS ORDERED: Famotidine 20 MG/2 ML VIAL IVP PRN (11:39)
[2021-02-27] MEDS ORDERED: Ondansetron 4 MG/2 ML VIAL IVP PRN (11:39)
[2021-02-27] MEDS ORDERED: EPINEPHrine 1 MG/ML VIAL IM PRN (11:39)
[2021-02-27] MEDS ORDERED: Nitroglycerin 0.4 MG TAB.SUBL SL PRN (11:39)
[2021-02-27] MEDS ORDERED: Perflutren Lipid Microsphere 1.3 ML in 0.9 % Sodium Chloride 8.7 ML IVP PRN (11:39)
[2021-02-27] MEDS ORDERED: EPINEPHrine 1 MG/ML VIAL IV PRN (11:39)
[2021-02-27] MEDS ORDERED: *HR* Phenylephrine 10 MG/ML VIAL ONE (12:46)
[2021-02-27] MEDS: Sennosides/Docusate Sodium TABLET PO SCH (20:20)
[2021-02-28] MEDS: Acetaminophen 325 MG TABLET PO SCH ×3 (05:18→16:40)
[2021-02-28 06:52] LABS: Basophils % 0.1 %; Hematocrit 38.2 % (37.5-50.1); Hemoglobin 13.2 g/dL (12.9-16.9); Immature Granulocytes % 0.8 % (0-4); Lymphocytes # 0.7 K/mcL (0.6-4.6); Lymphocytes % 5.9 %; Mean Corpuscular HGB Conc 34.6 g/dL (31.6-35.5); Mean Corpuscular Hemoglobin 32.2 pg (28.0-33.3); Mean Corpuscular Volume 93.2 fL (83.0-100.0); Mean Platelet Volume 9.8 fL (9.4-12.4); Monocytes # 0.7 K/mcL (0.0-1.3); Neutrophils # 9.8 K/mcL (1.6-8.9); Platelet Count 251 K/mcL (140-400); Red Cell Distribution Width 12.4 % (11.5-14.5); Segmented Neutrophils % 87.2 %; White Blood Count 11.3 K/mcL (4.3-11.1)
[2021-02-28 07:11] LABS: BUN/Creatinine Ratio 18 (6-26); Blood Urea Nitrogen 14 mg/dL (8-23); Calcium 8.7 mg/dL (8.6-10.3); Carbon Dioxide 30 mEq/L (23-29); Chloride 99 mEq/L (98-107); Glucose 116 mg/dL (70-105); Osmolality,Calculated 285 (280-300); Potassium 3.4 mEq/L (3.5-5.1); Sodium 137 mEq/L (136-145); eGFR For African Americans > 60 (> 60); eGFR For Non-African Americans > 60 (> 60)
[2021-02-28] MEDS: Budesonide/Formoterol 160/4.5 1 PUFF INH IH SCH ×2 (07:27→20:08)
[2021-02-28] MEDS: Sennosides/Docusate Sodium TABLET PO SCH ×2 (07:53→20:26)
[2021-02-28] MEDS: Piperacillin/Tazobactam 3.375 GM in 0.9 % Sodium Chloride Mini Bag 100 ML IVPB SCH ×2 (07:54→18:40)
[2021-02-28] MEDS ORDERED: amLODIPine 5 MG TABLET PO SCH (09:00)
[2021-02-28] MEDS ORDERED: Isosorbide MONOnitrate (24 HR) 60 MG TAB.ER.24H PO SCH (09:00)
[2021-02-28] MEDS ORDERED: Metoprolol XL (24 HR) Succ 50 MG TAB.ER.24H PO SCH (09:00)
[2021-02-28] MEDS ORDERED: lisinopriL 20 MG TABLET PO SCH (09:00)
[2021-03-01] MEDS: Piperacillin/Tazobactam 3.375 GM in 0.9 % Sodium Chloride Mini Bag 100 ML IVPB SCH (00:01)
[2021-03-01 05:57] LABS: Basophils % 0.2 %; Eosinophils % 0.3 %; Hematocrit 37.8 % (37.5-50.1); Hemoglobin 12.9 g/dL (12.9-16.9); Lymphocytes # 1.7 K/mcL (0.6-4.6); Lymphocytes % 18.7 %; Mean Corpuscular HGB Conc 34.1 g/dL (31.6-35.5); Mean Corpuscular Hemoglobin 31.6 pg (28.0-33.3); Mean Corpuscular Volume 92.6 fL (83.0-100.0); Mean Platelet Volume 9.5 fL (9.4-12.4); Monocytes # 1.2 K/mcL (0.0-1.3); Monocytes % 12.6 %; Neutrophils # 6.2 K/mcL (1.6-8.9); Platelet Count 253 K/mcL (140-400); Red Blood Count 4.08 M/mcL (4.19-5.50); Red Cell Distribution Width 12.4 % (11.5-14.5); Segmented Neutrophils % 67.2 %; White Blood Count 9.2 K/mcL (4.3-11.1)
[2021-03-01] MEDS: Acetaminophen 325 MG TABLET PO SCH ×2 (06:01)
[2021-03-01 06:11] LABS: BUN/Creatinine Ratio 18 (6-26); Blood Urea Nitrogen 15 mg/dL (8-23); Calcium 8.5 mg/dL (8.6-10.3); Carbon Dioxide 31 mEq/L (23-29); Chloride 102 mEq/L (98-107); Glucose 86 mg/dL (70-105); Osmolality,Calculated 286 (280-300); Potassium 3.3 mEq/L (3.5-5.1); Sodium 138 mEq/L (136-145); eGFR For African Americans > 60 (> 60); eGFR For Non-African Americans > 60 (> 60)
[2021-03-01 07:51] VITALS: BP 156/91; PULSE 67; TEMP 98; O2SAT 94
[2021-03-01] MEDS: Budesonide/Formoterol 160/4.5 1 PUFF INH IH SCH (08:08)
== END 2021-03-01 10:04 | disposition home or self-care (01) | DRG 417 ==
LOC: 2ANU 06:25 → EMEROOARM 06:25 → SUATTDRO 08:23 → 2ANU 09:16
PROVIDERS: ADMIT General Practice; ATTEND Student in an Organized Health Care Education/Training Program